=== PATIENT | male | born 1990 | race Caucasian/White ===

== ENCOUNTER → 2022-03-28 | Outpatient (REF) | payer OTHER ==
[2022-03-28 09:09] LABS: SEMEN APPEARANCE OPAQUE (OPAQUE); SEMEN VISCOSITY LIQUID (LIQUID); SPERM CONCENTRATION 79.7 M/ml (>=15.0); WBC CONCENTRATION <=1 M/ml (<=1 M/ml)
== END ==
LOC: M LAB REF 08:54
PROVIDERS: ATTEND Advanced Practice Midwife
DX: Z31.41 Encounter for fertility testing (principal)

== ENCOUNTER 2023-06-01 17:22 | Emergency (ER) | payer OTHER ==
[~2023-06-01] VITALS: Ht 170.2 cm; Wt 70.6 kg
[2023-06-01 17:23] VITALS: TEMP 98.6
[2023-06-01 21:27] VITALS: BP 141/74; O2SAT 97
== END 2023-06-01 22:30 | disposition left against medical advice (07) ==
LOC: M ED 17:22
DX: Z53.21 Procedure and treatment not carried out due to patient leaving prior to being seen by health care provider (principal)